=== PATIENT | male | born 2000 | race Caucasian/White ===

== ENCOUNTER 2022-11-17 20:19 | Emergency (ER) | payer OTHER ==
[~2022-11-17] VITALS: Ht 170.2 cm; Wt 70.3 kg
[2022-11-17 20:32] VITALS: BP_SYST 133; PULSE 55; RESP 20; TEMP 98.3; O2SAT 99
== END 2022-11-17 22:51 | disposition home or self-care (01) ==
LOC: SED 20:19
DX: R22.41 Localized swelling, mass and lump, right lower limb (principal); Z79.899 Other long term (current) drug therapy
CPT/HCPCS: 99281